=== PATIENT | female | born 1995 | race Caucasian/White ===

== ENCOUNTER 2020-11-28 20:58 | Inpatient (IN) ==
[~2020-11-28 20:58] MED LIST: Famotidine 20 MG/2 ML VIAL IVP PRN; Lidocaine 1% 20 ML MDV INFILT PRN; Metoclopramide 10 MG/2 ML VIAL IVP PRN; Naloxone 0.4 MG/ML INJ IVP PRN
[2020-11-28] MEDS ORDERED: Ringers Solution, Lactated 1,000 ML IVC SCH (21:00)
[2020-11-28] MEDS ORDERED: Penicillin G Potassium 5,000,000 UNIT in 0.9 % Sodium Chloride Mini Bag 100 ML IVPB ONE (21:01)
[2020-11-28] MEDS ORDERED: Epidural Premix (fent/bupiv) 110 ML EP ONE (21:10)
[2020-11-28] MEDS ORDERED: *HR* Labetalol 20 MG/4 ML SYRINGE IVP PRN ×3 (21:24)
[2020-11-28] MEDS ORDERED: *HR* FentaNYL (PF) 100 MCG/2 ML VIAL ONE (21:41)
[2020-11-28] MEDS ORDERED: Ropivacaine/PF 0.2% 20 ML VIAL ONE (21:41)
[2020-11-28 21:45] LABS: Basophils % 0.2 %; Eosinophils # 0.2 K/mcL (0.0-0.6); Eosinophils % 1.3 %; Hematocrit 35.2 % (35.3-44.9); Hemoglobin 11.7 g/dL (11.5-15.4); Immature Granulocytes % 0.3 % (0-4); Lymphocytes # 2.6 K/mcL (0.6-4.6); Mean Corpuscular HGB Conc 33.2 g/dL (31.6-35.5); Mean Corpuscular Hemoglobin 26.8 pg (28.0-33.3); Mean Corpuscular Volume 80.7 fL (83.0-100.0); Mean Platelet Volume 10.4 fL (9.4-12.4); Monocytes % 8.6 %; Neutrophils # 7.6 K/mcL (1.6-8.9); Platelet Count 293 K/mcL (140-400); Red Blood Count 4.36 M/mcL (3.82-4.97); Red Cell Distribution Width 14.6 % (11.5-14.5); Segmented Neutrophils % 66.6 %; White Blood Count 11.4 K/mcL (4.3-11.1)
[2020-11-28 21:57] LABS: Alanine Aminotransferase 8 Units/L (7-52); Aspartate Amino Transferase 9 Units/L (13-39); BUN/Creatinine Ratio 14 (6-26); Blood Urea Nitrogen 6 mg/dL (6-20); Lactate Dehydrogenase 89 Units/L (140-271); Uric Acid 4.9 mg/dL (2.3-7.6); eGFR For African Americans > 60 (> 60); eGFR For Non-African Americans > 60 (> 60)
[2020-11-28 22:16] LABS: Amphetamine Screen,Urine Negative ng/mL (Cutoff=1000); Barbiturate Screen,Urine Negative ng/mL (Cutoff=200); Benzodiazepines Screen,Urine Negative ng/mL (Cutoff=200); Cannabinoid Screen,Urine Negative ng/mL (Cutoff = 50); Cocaine Screen,Urine Negative ng/mL (Cutoff= 300); Opiate Screen,Urine Negative ng/mL (Cutoff=300); Phencyclidine Screen,Urine Negative ng/mL (Cutoff=25)
[2020-11-28 22:16] LABS: Protein/Creatinine Ratio,Urine 1.29 mg/mg (0.00-0.20)
[2020-11-28 22:45] LABS: Adenovirus Not Detected (Not Detect); Bordetella Pertussis Not Detected (Not Detect); Chlamydophila pneumoniae Not Detected (Not Detect); Coronavirus 229E Not Detected (Not Detect); Coronavirus HKU1 Not Detected (Not Detect); Coronavirus NL63 Not Detected (Not Detect); Coronavirus OC43 Not Detected (Not Detect); Human Metapneumovirus Not Detected (Not Detect); Human Rhinovirus/Enterovirus DETECTED (Not Detect); Influenza A Subtype 2009 H1 Not Detected (Not Detect); Influenza B Not Detected (Not Detect); Mycoplasma pneumoniae Not Detected (Not Detect); Parainfluenza Virus 1 Not Detected (Not Detect); Parainfluenza Virus 2 Not Detected (Not Detect); Parainfluenza Virus 3 Not Detected (Not Detect); Parainfluenza Virus 4 Not Detected (Not Detect); Respiratory Syncytial Virus Not Detected (Not Detect); SARS-CoV-2 Not Detected (Not Detect)
[2020-11-28] MEDS ORDERED: Oxytocin 20 units/ LR 1000 mL 20 UNIT/1,000 ML BAG IVC ONE (23:46)
[2020-11-28] MEDS ORDERED: *HR* Succinylcholine 200 MG/10 ML VIAL IVP ONE (23:52)
[2020-11-28] MEDS ORDERED: *HR* Propofol 200 MG/20 ML VIAL IVP ONE (23:52)
[2020-11-28] MEDS ORDERED: *HR* Rocuronium Bromide 50 MG/5 ML VIAL ONE (23:52)
[2020-11-28] MEDS ORDERED: *HR* Morphine Sulfate/PF 10 MG/10 ML AMPUL ONE (23:52)
[2020-11-29] MEDS ORDERED: Ondansetron 4 MG/2 ML VIAL ONE (00:12)
[2020-11-29] MEDS ORDERED: Lidocaine/EPI 1:200k 2% PF 20 ML VIAL ONE (00:24)
[2020-11-29] MEDS ORDERED: *HR* Phenylephrine 10 MG/ML VIAL ONE (00:33)
[2020-11-29] MEDS ORDERED: Neostigmine Methylsulfate 3 MG/3 ML SYRINGE ONE (00:45)
[2020-11-29] MEDS ORDERED: Penicillin G Potassium 2,500,000 UNIT/105 ML MLS IVPB SCH (01:00)
[2020-11-29 01:30] LABS: Basophils % 0.2 %; Eosinophils # 0.2 K/mcL (0.0-0.6); Eosinophils % 1.3 %; Hematocrit 26.8 % (35.3-44.9); Immature Granulocytes % 0.5 % (0-4); Lymphocytes # 3.2 K/mcL (0.6-4.6); Lymphocytes % 24.9 %; Mean Corpuscular HGB Conc 32.1 g/dL (31.6-35.5); Mean Platelet Volume 10.8 fL (9.4-12.4); Neutrophils # 8.3 K/mcL (1.6-8.9); Platelet Count 264 K/mcL (140-400); Red Blood Count 3.19 M/mcL (3.82-4.97); Red Cell Distribution Width 14.8 % (11.5-14.5); Segmented Neutrophils % 65.1 %; White Blood Count 12.8 K/mcL (4.3-11.1)
[2020-11-29] MEDS ORDERED: Acetaminophen IV 1,000 MG/100 ML BAG IVPB ONE (01:32)
[2020-11-29] MEDS ORDERED: Oxytocin 20 units/ LR 1000 mL 20 UNIT/1,000 ML BAG IVC ONE (01:33)
[2020-11-29 01:34] LABS: Hemoglobin 8.6 g/dL (11.5-15.4)
[2020-11-29] MEDS: *HR* HYDROmorphone 20 MG/20 ML PCA IVC PRN ×2 (02:33→12:59)
[2020-11-29] MEDS ORDERED: Rho Immune Globulin 1,500 UNIT SYRINGE IM ONE (04:37)
[2020-11-29] MEDS ORDERED: Metoclopramide 10 MG/2 ML VIAL IVP PRN (04:37)
[2020-11-29] MEDS ORDERED: Oxytocin 20 units/ LR 1000 mL 20 UNIT/1,000 ML BAG IVC SCH (04:37)
[2020-11-29] MEDS ORDERED: *HR* HYDROmorphone 20 MG/20 ML PCA IVC PRN (04:37)
[2020-11-29] MEDS ORDERED: Ondansetron 4 MG/2 ML VIAL IVP PRN (04:37)
[2020-11-29] MEDS: cephALEXin 500 MG CAPSULE PO SCH ×3 (08:24→19:46)
[2020-11-29] MEDS: Prenatal Vit/FA 1 EACH TABLET PO SCH (08:24)
[2020-11-29] MEDS: metroNIDAZOLE 500 MG TABLET PO SCH ×3 (08:24→19:46)
[2020-11-29] MEDS: Ibuprofen 600 MG TABLET PO SCH ×4 (08:38→23:45)
[2020-11-29] MEDS: Acetaminophen 325 MG TABLET PO SCH ×4 (08:39→23:45)
[2020-11-29] MEDS ORDERED: Ringers Solution, Lactated 1,000 ML ONE (10:33)
[2020-11-29] MEDS: *HR* OxyCODONE/APAP 5/325 TABLET PO PRN (10:36)
[2020-11-29 11:12] LABS: Hemoglobin 9.2 g/dL (11.5-15.4)
[2020-11-29] MEDS ORDERED: Methylergonovine 0.2 MG/ML AMPUL IM ONE (17:02)
[2020-11-29] MEDS: Simethicone 80 MG TAB.CHEW PO PRN (19:46)
[2020-11-30] MEDS ORDERED: Ringers Solution, Lactated 500 ML IVC ONE (00:05)
[2020-11-30] MEDS: Acetaminophen 325 MG TABLET PO SCH ×3 (05:59→18:40)
[2020-11-30] MEDS: Ibuprofen 600 MG TABLET PO SCH ×3 (05:59→18:40)
[2020-11-30] MEDS: Prenatal Vit/FA 1 EACH TABLET PO SCH (08:22)
[2020-11-30] MEDS: metroNIDAZOLE 500 MG TABLET PO SCH ×3 (08:22→19:54)
[2020-11-30] MEDS: cephALEXin 500 MG CAPSULE PO SCH ×3 (08:22→19:54)
[2020-11-30 08:41] LABS: Basophils % 0.1 %; Eosinophils # 0.1 K/mcL (0.0-0.6); Eosinophils % 1.3 %; Hematocrit 24.5 % (35.3-44.9); Hemoglobin 7.9 g/dL (11.5-15.4); Immature Granulocytes % 0.4 % (0-4); Lymphocytes # 1.9 K/mcL (0.6-4.6); Lymphocytes % 20.5 %; Mean Corpuscular HGB Conc 32.2 g/dL (31.6-35.5); Mean Corpuscular Hemoglobin 26.8 pg (28.0-33.3); Mean Corpuscular Volume 83.1 fL (83.0-100.0); Mean Platelet Volume 10.2 fL (9.4-12.4); Monocytes # 0.7 K/mcL (0.0-1.3); Monocytes % 7.2 %; Neutrophils # 6.4 K/mcL (1.6-8.9); Platelet Count 204 K/mcL (140-400); Red Blood Count 2.95 M/mcL (3.82-4.97); Segmented Neutrophils % 70.5 %; White Blood Count 9.1 K/mcL (4.3-11.1)
[2020-11-30] MEDS: Simethicone 80 MG TAB.CHEW PO PRN (18:40)
[2020-11-30] MEDS: *HR* Enoxaparin 60 MG/0.6 ML SYRINGE SQ SCH (21:09)
[2020-11-30 22:45] VITALS: O2SAT 98
[2020-12-01] MEDS: Ibuprofen 600 MG TABLET PO SCH ×3 (00:23→14:24)
[2020-12-01] MEDS: Acetaminophen 325 MG TABLET PO SCH ×3 (00:23→14:24)
[2020-12-01] MEDS: *HR* OxyCODONE/APAP 5/325 TABLET PO PRN (04:04)
[2020-12-01] MEDS: *HR* Enoxaparin 60 MG/0.6 ML SYRINGE SQ SCH (08:05)
[2020-12-01] MEDS: Prenatal Vit/FA 1 EACH TABLET PO SCH (08:05)
[2020-12-01 09:44] VITALS: BP 115/67; PULSE 97; TEMP 98.1
[2020-12-01 13:03] LABS: Basophils % 0.1 %; Eosinophils # 0.1 K/mcL (0.0-0.6); Eosinophils % 1.1 %; Hematocrit 23.2 % (35.3-44.9); Hemoglobin 7.7 g/dL (11.5-15.4); Immature Granulocytes % 0.4 % (0-4); Lymphocytes # 1.9 K/mcL (0.6-4.6); Lymphocytes % 17.4 %; Mean Corpuscular HGB Conc 33.2 g/dL (31.6-35.5); Mean Corpuscular Hemoglobin 27.8 pg (28.0-33.3); Mean Corpuscular Volume 83.8 fL (83.0-100.0); Mean Platelet Volume 10.6 fL (9.4-12.4); Monocytes # 0.7 K/mcL (0.0-1.3); Monocytes % 6.6 %; Neutrophils # 8.3 K/mcL (1.6-8.9); Platelet Count 257 K/mcL (140-400); Red Blood Count 2.77 M/mcL (3.82-4.97); Red Cell Distribution Width 14.9 % (11.5-14.5); Segmented Neutrophils % 74.4 %; White Blood Count 11.1 K/mcL (4.3-11.1)
== END 2020-12-01 14:50 | disposition home or self-care (01) | DRG 540 ==
LOC: 1NENULAB → 1NENUOBS 11-29 04:54
PROVIDERS: ADMIT Advanced Practice Midwife; ATTEND Advanced Practice Midwife